=== PATIENT | male | born 1940 | race Caucasian/White ===

== ENCOUNTER → 2017-05-15 | Outpatient (CLI) | payer MEDICARE ==
[~2017-05-15] MED LIST: COREG3.125 MG GT
[2017-05-15 15:59] LABS: HEMATOCRIT 25.1 % (42.0-52.0); HEMOGLOBIN 8.1 g/dl (14.0-18.0); MEAN CELL VOLUME 109.6 fl (80.0-94.0); MEAN CORPUSCULAR HGB 35.4 pg (27.0-31.0); MEAN CORPUSCULAR HGB CONC 32.3 g/dl (33.0-37.0); MEAN PLATELET VOLUME 11.8 fl (9.6-12.3); PLATELET COUNT AUTOMATED 208 10*3/uL (130-400); RED BLOOD COUNT 2.29 10*6/uL (4.50-5.90); RED CELL DISTRI WIDTH 14.2 % (0-14.5); WHITE BLOOD COUNT 6.1 10*3/uL (4.8-10.8)
[2017-05-15 16:17] LABS: BASOPHILS 1 % (0-1); PLATELET SUFFICIENCY NORMAL (NORMAL); TOTAL CELLS COUNTED 100 #CELLS
[2017-05-15 16:18] LABS: POLYCHROMASIA SLIGHT
== END | disposition home or self-care (01) ==
LOC: LAB 15:30
PROVIDERS: Family Medicine
DX: K92.2 Gastrointestinal hemorrhage, unspecified (principal)

== ENCOUNTER 2017-05-17 16:05 | Inpatient (IN) | payer MEDICARE ==
[~2017-05-17] VITALS: Ht 177.8 cm; Wt 84.4 kg
[2017-05-17] VITALS (8 sets, daily range): BP systolic 112–136; BP diastolic 74–83
--- NOTE | ~2017-05-17 | CON ---
[place], [place] REPORT OF CONSULTATION NAME: HALEY ARENAS UNIT #: [id number] ROOM: 415 DOCTOR: ISRAEL RIOSCARMELA BIRTHDATE: [birth year] DOS: HISTORY OF PRESENT ILLNESS: This gentleman has presented with multiple medical issues. He is a 77-year-old patient who is anemic, macrocytic indices with H and H of 8 and 25. His H and H dropped to 7 and 24. He has some dysphagia issues. His INR 1.0. Comprehensive metabolic panel: BUN and creatinine 46 and 1.9, GFR 42. Liver function test normal. His chest x-ray, mild cardiomegaly. His CBC differential after transfusion improved to 9 and 28. Today's H and H back to 8.7 and 26, macrocytic indices with platelets of 154. PAST MEDICAL HISTORY: The patient does complain of dysphagia is taking his medicines through PEG tube. 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 Hypertension. PAST SURGICAL HISTORY: Right inguinal hernia repair. SOCIAL HISTORY: Passive smoker and alcohol consumer. FAMILY HISTORY: Noncontributory. ALLERGIES: To no known medications. MEDICATIONS: List has been reviewed. REVIEW OF SYSTEMS: HEENT: Denies double vision, blurred vision. RESPIRATORY: Denies acute shortness of breath. CARDIOVASCULAR: Admits to difficulty with swallowing pills especially capsules. NEUROMUSCULOSKELETAL: Denies muscle wasting or tremens. PHYSICAL EXAMINATION: GENERAL: Alert, relatively oriented patient. HEENT: Head normocephalic, nontraumatic. Mouth and buccal mucosa benign. NECK: Supple, no thyromegaly. CHEST: Symmetric anatomy, equal expansion. No wheeze, no rhonchi. HEART: Normal sinus rhythm, no gallop, no murmur. ABDOMEN: Soft. No hepato-organomegaly. PEG tube in place. EXTREMITIES: No cyanosis, no pedal edema. NEUROLOGIC: Alert, oriented to time, place, person. IMPRESSION: Dysphagia, throat carcinoma, anemia, renal insufficiency, status post transfusion. PLAN AND DISCUSSION: Endoscopic assessment to rule out recurrent pathology. Other adjunctive diagnoses, systemic hypertension, otherwise status post PEG in the past. [place], [place] REPORT OF CONSULTATION NAME: HALEY ARENAS [place] UNIT #: [id number] ROOM: [facility] DOCTOR: CARMELA WOOD MD BIRTHDATE: [birth year] CARMELA WOOD MD CM:CONSTR:REPORT OF CONSULTATION 1432 05/21/17 0107 interface
--- NOTE | ~2017-05-17 | O ---
[place], [place] OPERATIVE NOTE NAME: HALEY ARENAS UNIT #: [id number] ROOM: 415 DOCTOR: CARMELA WOOD MD BIRTHDATE: [birth year] DOS: 05/20/2017 INDICATIONS: A 77-year-old patient who presented with chief complaint of dysphagia, pharyngeal carcinoma status post PEG tube. PROCEDURE: Today's procedure part of investigation is panendoscopy plus balloon dilation of esophagus and cervical anatomy as well as biopsy gastric pouch. PREMEDICATION: Versed and Diprivan. SCOPE: Olympus forward-viewing gastroscope Q10 video. REPORT: After putting the patient in left lateral position and application of lubricant to the scope, the scope was introduced. Thereafter, under direct visualization, advanced through the length of esophagus without difficulty. Upper esophageal stricture was identified. Gastric pouch was entered. Gastritis seen. Duodenal bulb, second and third part within normal limit. Antral biopsy was obtained. A balloon size 18 was inflated in the gastric pouch and orally extracted. 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 PLAN AND DISCUSSION: Soft diet at the present time and PEG tube when necessary to reutilize was assessed and it is intact. IMPRESSION: Upper esophageal stricture, gastritis status post biopsy and balloon dilation of the esophagus. CARMELA WOOD MD CM:OPRECORD:OPERATIVE NOTE [id number] CARMELA WOOD MD 05/20/17 1546 interface
[2017-05-17 15:58] LABS: HEMOGLOBIN 7.7 g/dl (14.0-18.0); MEAN CELL VOLUME 110.1 fl (80.0-94.0); MEAN CORPUSCULAR HGB 35.3 pg (27.0-31.0); MEAN CORPUSCULAR HGB CONC 32.1 g/dl (33.0-37.0); MEAN PLATELET VOLUME 11.9 fl (9.6-12.3); PLATELET COUNT AUTOMATED 200 10*3/uL (130-400); RED BLOOD COUNT 2.18 10*6/uL (4.50-5.90); RED CELL DISTRI WIDTH 15.1 % (0-14.5); WHITE BLOOD COUNT 5.2 10*3/uL (4.8-10.8)
[2017-05-17 16:22] LABS: POLYCHROMASIA SLIGHT; TOTAL CELLS COUNTED 100 #CELLS
[2017-05-17 16:23] LABS: PLATELET SUFFICIENCY NORMAL (NORMAL)
[2017-05-17 17:04] LABS: HEMATOCRIT 24.2 % (42.0-52.0); HEMOGLOBIN 7.9 g/dl (14.0-18.0)
[2017-05-17 17:12] LABS: ACT PARTIAL THROMBO TIME 23.9 SECONDS (20.8-31.5)
[2017-05-17 17:18] LABS: ALBUMIN 2.8 gm/dl (3.1-4.5); CREATININE 1.9 mg/dL (0.70-1.30); POTASSIUM 4.5 mmol/L (3.5-5.1)
--- NOTE | 2017-05-17 18:43 | NUR ---
Time: 630 A 77 year old MALE admitted to under services of SHEILA SMITH DO. Pt. arrived via PERSONAL VEHICLE from ER. Chief complaint: ABNORMAL LAB . RADHA MUNOZ
[2017-05-17] MEDS ORDERED: COREG3.125 MG GT (19:00)
--- NOTE | 2017-05-17 19:47 | NUR ---
DR. WOOD NOTIFIED OF CONSULT. ORDERS OBTAINED TO OBTAIN OCCULT BLOOD STOOL, H & H IN THE MORNING, CALL RESULTS, AND PROTONIX PO DAILY.
--- NOTE | 2017-05-17 19:59 | NUR ---
TUBE AND BASIN PLACED IN PT ROOM. PT FEEDS SELF VIA G-TUBE.
--- NOTE | 2017-05-17 20:30 | NUR ---
RESTING IN BED WATCHING TV. RESPIRATIONS EASY. LUNGS DIMINISHED, CLEAR. PULSE OX 100% RA. ABD SOFT WITH HYPOACTIVE BOWEL SOUNDS. PEG TUBE PATENT. CALL LIGHT WITHIN REACH. NO VOICED COMPLAINTS
--- NOTE | 2017-05-17 22:00 | NUR ---
BLOOD CONSENT OBTAINED. 1 UNIT PRBC TRANSFUSION INITIATED PER ORDER
--- NOTE | 2017-05-17 23:00 | NUR ---
BLOOD TRANSFUSING PER ORDER. VSS. PATIENT TOLERATING WELL
[2017-05-18] VITALS: BP 126/79
--- NOTE | 2017-05-18 | NUR ---
BLOOD CONTINUES TO TRANSFUSE PER ORDER
--- NOTE | 2017-05-18 00:34 | NUR ---
BLOOS TRANSFUSION COMPLETE. PATIENT TOLERATED WELL WITH NO ADVERSE REACTION NOTED.
--- NOTE | 2017-05-18 06:00 | NUR ---
slept throughout night with no distress noted. respirations easy. aware of need for stool specimen, no bm this shift. call light within reach. no voiced complaints this shift
[2017-05-18 06:27] LABS: BASO % 0.4 % (0.0-1.0); EOS # 0.1 10*3/uL (0.0-0.4); EOS % 2.4 % (1.0-4.0); HEMATOCRIT 28.2 % (42.0-52.0); HEMOGLOBIN 9.2 g/dl (14.0-18.0); LYMPH # 0.7 10*3/uL (1.3-4.4); LYMPH % 15.8 % (27.0-41.0); MEAN CORPUSCULAR HGB 34.5 pg (27.0-31.0); MEAN CORPUSCULAR HGB CONC 32.6 g/dl (33.0-37.0); MEAN PLATELET VOLUME 12.4 fl (9.6-12.3); MONO # 0.6 10*3/uL (0.1-1.0); MONO % 12.3 % (3.0-9.0); NEUT # 3.2 10*3/uL (2.3-7.9); NEUT % 68.9 % (47.0-73.0); PLATELET COUNT AUTOMATED 182 10*3/uL (130-400); RED BLOOD COUNT 2.67 10*6/uL (4.50-5.90); RED CELL DISTRI WIDTH 17.1 % (0-14.5); WHITE BLOOD COUNT 4.6 10*3/uL (4.8-10.8)
[2017-05-18 06:31] LABS: MEAN CELL VOLUME 105.6 fl (80.0-94.0)
[2017-05-18 06:56] LABS: CREATININE 1.78 mg/dL (0.70-1.30); POTASSIUM 4.4 mmol/L (3.5-5.1)
[2017-05-18 06:58] LABS: ACT PARTIAL THROMBO TIME 23.6 SECONDS (20.8-31.5)
[2017-05-18 07:04] LABS: THYROID STIM HORMONE (HS) 3.89 uIU/ml (0.358-4.75)
[2017-05-18 08:00] VITALS: BP 138/70
[2017-05-18 08:26] LABS: VITAMIN D, 25-HYDROXY 35.7 ng/mL (30-100)
[2017-05-18 12:00] VITALS: BP 126/75
--- NOTE | 2017-05-18 12:23 | NUR ---
ISO SOURCE X2 CARTONS VIA PEG TUBE TID. PT FEEDS SELF.
[2017-05-18 16:00] VITALS: BP 134/84
[2017-05-18 20:00] VITALS: BP 123/73
--- NOTE | 2017-05-18 20:30 | NUR ---
SITTING IN BED WATCHING TV. NO DISTRESS NOTED. RESPIRATIONS EASY. LUNGS DIMINISHED, CLEAR. PULSE OX 100% RA. DENIES ACTIVE BLEED. LIGHT WITHIN REACH. NO VOICED COMPLAINTS
--- NOTE | 2017-05-18 23:00 | NUR ---
SLEEPING, NO DISTRESS NOTED. RESPIRATIONS EASY. CALL LIGHT WITHIN REACH
[2017-05-19] VITALS: BP 119/76
--- NOTE | 2017-05-19 06:00 | NUR ---
SLEPT THROUGHOUT NIGHT WITH NO DISTRESS NOTED. NO ACTIVE BLEED. VOICES DESIRE FOR DISCHARGE.
[2017-05-19 06:24] LABS: BASO % 0.4 % (0.0-1.0); EOS # 0.1 10*3/uL (0.0-0.4); EOS % 2.5 % (1.0-4.0); HEMATOCRIT 28.1 % (42.0-52.0); HEMOGLOBIN 9.1 g/dl (14.0-18.0); LYMPH # 0.6 10*3/uL (1.3-4.4); LYMPH % 13.3 % (27.0-41.0); MEAN CELL VOLUME 107.7 fl (80.0-94.0); MEAN CORPUSCULAR HGB 34.9 pg (27.0-31.0); MEAN CORPUSCULAR HGB CONC 32.4 g/dl (33.0-37.0); MEAN PLATELET VOLUME 11.8 fl (9.6-12.3); MONO # 0.6 10*3/uL (0.1-1.0); MONO % 13.1 % (3.0-9.0); NEUT # 3.4 10*3/uL (2.3-7.9); NEUT % 70.5 % (47.0-73.0); PLATELET COUNT AUTOMATED 172 10*3/uL (130-400); RED BLOOD COUNT 2.61 10*6/uL (4.50-5.90); RED CELL DISTRI WIDTH 16.8 % (0-14.5); WHITE BLOOD COUNT 4.8 10*3/uL (4.8-10.8)
[2017-05-19 06:48] LABS: CREATININE 1.8 mg/dL (0.70-1.30); POTASSIUM 4.9 mmol/L (3.5-5.1)
[2017-05-19 08:00] VITALS: BP 102/64
--- NOTE | 2017-05-19 08:00 | NUR ---
RESTING AT SIDE OF BED, EASY RESPIRATIONS WITH SKIN W/D. PT DENIES C/O AT PRESENT TIME. PEG TUBE PATENT & PT IS ADDING ISOSOURCE TO PEG. ABD SOFT WITH ACTIVE BOWEL SOUNDS NOTED. SEE SHIFT ASSESSMENT.
--- NOTE | 2017-05-19 10:16 | NUR ---
DR PITTS IN TO SEE PT, SON AT BEDSIDE.
[2017-05-19 12:00] VITALS: BP 138/66
[2017-05-19 16:00] VITALS: BP 124/73
--- NOTE | 2017-05-19 19:02 | NUR ---
AMBULATORY IN HALLS THIS SHIFT. PT INSTRUCTED ON NPO STATUS AFTER MIDNIGHT. PT VOICES UNDERSTANDING.
[2017-05-19 20:00] VITALS: BP 128/74
--- NOTE | 2017-05-19 20:28 | NUR ---
1950 RESTING IN BED WATCHING TV. ALERT AND PLEASANT. NO C/O'S VOICED. PEG TUBE INTACT. IV FLUIDS STARTED PER ORDER DR. WOOD.
--- NOTE | 2017-05-19 22:44 | NUR ---
REMAINS NPO PER ORDER DR. WOOD.
[2017-05-20] VITALS (10 sets, daily range): BP systolic 109–156; BP diastolic 62–88
--- NOTE | 2017-05-20 00:33 | NUR ---
RESTING IN BED WITH EYES CLOSED. APPEARS TO BE SLEEPING.
[2017-05-20 04:55] LABS: HEMATOCRIT 26.6 % (42.0-52.0); HEMOGLOBIN 8.7 g/dl (14.0-18.0); MEAN CELL VOLUME 108.6 fl (80.0-94.0); MEAN CORPUSCULAR HGB 35.5 pg (27.0-31.0); MEAN CORPUSCULAR HGB CONC 32.7 g/dl (33.0-37.0); MEAN PLATELET VOLUME 10.7 fl (9.6-12.3); PLATELET COUNT AUTOMATED 154 10*3/uL (130-400); RED BLOOD COUNT 2.45 10*6/uL (4.50-5.90); RED CELL DISTRI WIDTH 16.4 % (0-14.5); WHITE BLOOD COUNT 4.7 10*3/uL (4.8-10.8)
[2017-05-20 05:09] LABS: ALBUMIN 2.6 gm/dl (3.1-4.5); CREATININE 1.79 mg/dL (0.70-1.30); POTASSIUM 4.3 mmol/L (3.5-5.1); TOTAL PROTEIN 6.3 gm/dL (6.4-8.2)
[2017-05-20 05:16] LABS: ATYPICAL LYMPHS 1 % (0-0); PLATELET SUFFICIENCY NORMAL (NORMAL); TOTAL CELLS COUNTED 100 #CELLS
--- NOTE | 2017-05-20 06:14 | NUR ---
SLEPT WELL THIS SHIFT. REMAINS WITHOUT C/O'S. IV FLUIDS CONT. REMAINS NPO. CONDITION GUARDED.
--- NOTE | 2017-05-20 07:24 | NUR ---
SLEEPING DURING REPORT - IVF INFUSING
--- NOTE | 2017-05-20 07:30 | NUR ---
PATIENT MADE AWARE OF EGD -
--- NOTE | 2017-05-20 08:31 | NUR ---
NO CHANGES TO MED REC- PT WANTS TO PUT LA CROSS ON LATER
--- NOTE | 2017-05-20 09:00 | NUR ---
Supervisor In Charge in to talk to patient. Patient states lives at home with son, sometimes girlfriend. There are few steps in the home. Physician: bereket samson Pharmacy: [facility] health services: none Patient's level of ADLs: INDEPENDENT Patient has working utilities: all working DME: none Follow-up physician's appointment after d/c: will be made by hospitalist nurse director upon discharge Does patient want to access PORTAL?: no Discharge plan discussed with patient, patient lives at home with his son, sometimes stays with his girlfriend, patient states he is independent in adls and ambulation, drives, patient has a peg tube that he takes care of himself, patient stated he would be going back home and denies any home needs. DANN CESAR
--- NOTE | 2017-05-20 09:56 | NUR ---
DR PITTS HERE PATIENT SEEN
--- NOTE | 2017-05-20 13:18 | NUR ---
SPEECH PATHOLOGY Screening complete. Patient admitted with abnormal labs. Patient has a PEG tube for feeding due to hx of throat cancer. Reports indicate patient is independent at home. There are no reports of acute receptive or expressive deficits. Speech pathology services are not warranted at this time. This dept. will remain available should future needs arise. NADINE CHAVEZ [facility]
--- NOTE | 2017-05-20 15:23 | NUR ---
REPORT RECEIVED FROM SURGERY.
--- NOTE | 2017-05-20 15:37 | NUR ---
RECEIVED FROM SURGERY - AAOX3. ASSESSED AT BEDSIDE.
--- NOTE | 2017-05-20 20:15 | NUR ---
PT AWAKE IN BED WATCHING TV. NO C/O VOICED. CALL LIGHT IN REACH.
--- NOTE | 2017-05-20 22:47 | NUR ---
24 HR chart check completed.
[2017-05-21] VITALS: BP 113/80
--- NOTE | 2017-05-21 04:57 | NUR ---
PT RESTING QUIETLY IN BED. NO S/S OF DISTRESS NOTED.
--- NOTE | 2017-05-21 05:55 | NUR ---
PT AM MED CRUSHED AND PT FLUSHED PEG TUBE AND ADMINISTERED MED PER SELF W/OUT DIFF. PT TEACHING GIVEN ON WHERE TO PURCHASE PILL CRUSHERS.
[2017-05-21 06:35] LABS: BASO % 0.5 % (0.0-1.0); EOS # 0.2 10*3/uL (0.0-0.4); EOS % 3.6 % (1.0-4.0); HEMATOCRIT 28.3 % (42.0-52.0); LYMPH # 0.8 10*3/uL (1.3-4.4); MEAN CELL VOLUME 107.6 fl (80.0-94.0); MEAN CORPUSCULAR HGB 34.2 pg (27.0-31.0); MEAN CORPUSCULAR HGB CONC 31.8 g/dl (33.0-37.0); MEAN PLATELET VOLUME 12.2 fl (9.6-12.3); MONO # 0.4 10*3/uL (0.1-1.0); NEUT % 68.7 % (47.0-73.0); PLATELET COUNT AUTOMATED 156 10*3/uL (130-400); RED BLOOD COUNT 2.63 10*6/uL (4.50-5.90); RED CELL DISTRI WIDTH 15.9 % (0-14.5); WHITE BLOOD COUNT 4.4 10*3/uL (4.8-10.8)
[2017-05-21 06:58] LABS: CREATININE 1.68 mg/dL (0.70-1.30); POTASSIUM 4.5 mmol/L (3.5-5.1)
[2017-05-21 08:00] VITALS: BP 102/71
--- NOTE | 2017-05-21 08:18 | NUR ---
Awake and alert. States he thinks he's goig home today. No c/o.
--- NOTE | 2017-05-21 09:00 | NUR ---
case management visits with patient, patient denies any home needs
--- NOTE | 2017-05-21 12:02 | NUR ---
Dr. Dunn in . order for discharge recieved. Discharge instruction given . Voiced understanding. reddness and crusting noted around peg tube site. as I began to remove dressing . Pt. stated that he would do it himself after he took a shower and washed around it at home. Discharged to home.
--- NOTE | 2017-05-21 12:04 | NUR ---
IV and monitor removed.
== END 2017-05-21 12:04 | disposition home or self-care (01) | DRG 377 ==
LOC: EDSTATUS 16:05 → ED 16:06 → 4E 16:43 → EDHOLD 16:43 → 4E 16:56
PROVIDERS: Emergency Medicine; Family Medicine; Hospitalist; Internal Medicine; ADMIT Internal Medicine
PROC: 30233N1 Transfusion of Nonautologous Red Blood Cells into Peripheral Vein, Percutaneous Approach (ICD-10-PCS; principal; 2017-05-17)
PROC: 0DB68ZX Excision of Stomach, Via Natural or Artificial Opening Endoscopic, Diagnostic (ICD-10-PCS; 2017-05-20)
PROC: 0D738ZZ Dilation of Lower Esophagus, Via Natural or Artificial Opening Endoscopic (ICD-10-PCS; 2017-05-20)
DX: K29.71 Gastritis, unspecified, with bleeding (principal); E43 Unspecified severe protein-calorie malnutrition; R06.00 Dyspnea, unspecified; K22.2 Esophageal obstruction; R13.10 Dysphagia, unspecified; E83.41 Hypermagnesemia; Z93.1 Gastrostomy status; D53.9 Nutritional anemia, unspecified; N18.3 Chronic kidney disease, stage 3 (moderate); D72.810 Lymphocytopenia; I12.9 Hypertensive chronic kidney disease with stage 1 through stage 4 chronic kidney disease, or unspecified chronic kidney disease; Z85.89 Personal history of malignant neoplasm of other organs and systems; Z82.49 Family history of ischemic heart disease and other diseases of the circulatory system; Z87.891 Personal history of nicotine dependence; Z68.26 Body mass index [BMI] 26.0-26.9, adult

== ENCOUNTER 2020-02-08 02:21 | Emergency (ER) | payer MEDICARE ==
[~2020-02-08] VITALS: Ht 175.3 cm; Wt 87.1 kg
[2020-02-08] VITALS (7 sets, daily range): BP systolic 69–108; BP diastolic 30–62
[2020-02-08 02:54] LABS: MEAN CELL VOLUME 111.9 fl (80.0-94.0); MEAN CORPUSCULAR HGB 36.2 pg (27.0-31.0); MEAN CORPUSCULAR HGB CONC 32.4 g/dl (33.0-37.0); MEAN PLATELET VOLUME 12.2 fl (9.6-12.3); PLATELET COUNT AUTOMATED 110 10*3/uL (130-400); RED BLOOD COUNT 1.85 10*6/uL (4.50-5.90); RED CELL DISTRI WIDTH 12.7 % (0-14.5)
[2020-02-08 02:57] LABS: HEMATOCRIT 20.7 % (42.0-52.0)
[2020-02-08 03:12] LABS: ALBUMIN 2.2 gm/dl (3.1-4.5); CREATININE 3.29 mg/dL (0.70-1.30); POTASSIUM 5.2 mmol/L (3.5-5.1); TOTAL PROTEIN 5.1 gm/dL (6.4-8.2)
[2020-02-08 03:13] LABS: TROPONIN I 0.018 ng/ml (<0.045)
[2020-02-08 03:18] LABS: PLATELET SUFFICIENCY LOW (NORMAL); TOTAL CELLS COUNTED 100 #CELLS
== END 2020-02-08 02:58 | disposition short-term general hospital (02) ==
LOC: ED 02:21
PROVIDERS: Emergency Medicine
DX: R57.1 Hypovolemic shock (principal); K92.2 Gastrointestinal hemorrhage, unspecified; I10 Essential (primary) hypertension